=== PATIENT | male | born 1965 | race Caucasian/White ===

== ENCOUNTER 2020-09-18 17:49 | Outpatient (RCR) | payer BC, SELFPAY ==
[2020-09-10 09:59] VITALS: BMI 22.0
--- NOTE | 2020-09-19 12:20 | HP.PTEVAL_ITS ---
Patient's Visit Information LULU MADERA is a 55 year old M referred to Physical Therapy by Dr. Joanie Fermin DO with a diagnosis of R RTC tear, capsulitis. Date of Evaluation: 09/18/20 Physical Therapist: Nirav Kerns DPT - Visit Plan Frequency: 2x /Week Duration: 4-6 Weeks Plan: Start with AAROM and GH glides with PROM allowing for improved ROM. Add in strengthening of scapular musculature as his motion improves. - Subjective Pt is here today for his initial evaluation with diagnosis of R RTC tear, capsulitis. Pt. reprots having a R shoulder injury for a few years now, but has become progressively worse. His symptoms worsened to the point where he was having trouble lifting his coffee mug. He reports his jenkins is throughout his R shoulder, worset at posterior aspect of his shoulder. Increased pain: lifting, raising his arm over his head, lifting, reaching behind his back. Decreased pain: rest. 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 By the end of the day his pain is worsening. Increased pain with sleeping, especially if his arm is in more ER positioning. He did recently recieve an injetion at subacromial joint which has helped a lot. He denies N/T in either UEs. Pt. is hopeful to rduce his symptoms in order to get back to throwing with in grandson this summer. - Pain R shoulder Pain Intensity (Out of 10): 1 Pain Intensity Range: 0, 6 - Objective POSTURE: Pt. tends to keep his shuolder in anterior positioning, FH posture. PALPATION: Pt. has tenderness at subacromial space and bicipital groove. NEURO: Pt. has normal sensation throughout BUEs, normal DTR of biceps and triceps. ROM: R shoulder: PROM- flexion 160deg, abd 155ded, ER at side 60deg. AROM: flexion 160deg, abd 150deg, functional ER C2 mild increase NE, functional IR L3 NE, full extension. MMT: LUE- 5/5 throughout. RUE- wrist 5/5; elbow- 5/5; shoulder- flexion 4/5 mild increase NW, abd 4+/5 NE, Er 4+/5 NE, IR 4+/5 NE, ext 5/5 NE. - Special Tests R Shoulder Belly Press - SupScap: Negative R Shoulder Neer - Impingement: Positive R Shoulder [place] Yoel - Impingement: Positive R Shoulder Yeargasons - SLAP: Positive R Shoulder Speeds Test - Labrum/Biceps: Positive - Goals Goal 1:: LTG: Pt. to be I with HEP. Goal Time Frame: 4-6 Weeks Goal 2:: STG: Pt. to sleep throughout the night without increase in symptoms of R shoulder. Goal Time Frame: 2-4 Weeks Goal 3:: LTG: Pt. to have full R shoulder AROM without increase in symptoms. Goal Time Frame: 4-6 Weeks Goal 4:: LTG: Pt. to complete all work activities and ADLs without increase in symptoms. Goal Time Frame: 4-6 Weeks Goal 5:: LTG: Pt. to have increased RUE strength by 1/2 grade of all effected musculature. Goal Time Frame: 4-6 Weeks - Rehabilitation Potential Physical Therapy Diagnosis: Pt. presents with signs and symptoms consistent with R RTC/capsulitis. Pt. has improved R shoulder ROM and decreased pain since having his injection. He does lack end range of motion over head and with functional ER. He would benefit from PT to work on his ROM at this point in time. He pain is much better, but he is still lmited to ~75% of his overhead motion. Rehabilitation Potential: Excellent - Anticipated Interventions Patient/Client Instruction: Educate patient on: Condition, Plan of Care, Risk Factors, Benefits of Fitness Program For the Purpose of:: To improve decision making, To facilitate caregiver kn owledge, To improve self management, To prevent re-injury, To improve ability to perform tasks related to life management, To improve tolerance to ADL's Therapeutic Exercise to Include: Strength training, Power training, Body mechanics, Postural training, Flexibilty training, Passive ROM, Active ROM, Ash Exercises, Scapular Strength/Stabilization For the Purpose of:: To decrease pain, To decrease swelling/inflammation, To increase ROM, To improve nutrient delivery to tissue, To improve muscle performance and motor function, To decrease level of supervision to perform tasks, To improve health of tissue, To decrease soft tissue restriction, To increase flexibility/ROM Manual Therapy Techniques to Include: Mobilization, Passive ROM, Soft tissue mobilization For the Purpose of:: To decrease pain, To decrease swelling/inflammation, To increase ROM, To improve nutrient delivery to tissue, To increase oxygenation perfusion, To improve muscle performance and motor function Thank you for the opportunity to evaluate your patient. For Medicare and Medicare HMO plans, please review the plan of care and approve it. It will need to be FAXED BACK to us at [phone] for Medicare purposes. For Medicare only, by signing this I certify the plan of care. Please let me know if there are questions or concerns regarding this plan of care. Physician Signature: Date:
== END 2020-09-18 19:00 | disposition home or self-care (01) ==
LOC: PT 17:49
PROVIDERS: Visit Provider Orthopaedic Surgery
DX: M75.101 Unspecified rotator cuff tear or rupture of right shoulder, not specified as traumatic (principal); M77.9 Enthesopathy, unspecified
CPT/HCPCS: 97110; 97161

== ENCOUNTER → 2022-12-16 | Outpatient (CLI) | payer BC, SELFPAY ==
--- NOTE | 2022-12-16 18:04 | MRI_ITS ---
EXAM: MR RIGHT LOWER EXTREMITY WITHOUT INTRAVENOUS CONTRAST, KNEE CLINICAL INDICATION: PATELLAR TENDINITIS, RT KNEE PAIN, swelling TECHNIQUE: Multiplanar and multisequence MR images of the right knee without intravenous contrast. This report was created using [id number] report [employer] technology. COMPARISON: None. FINDINGS: BONES/JOINTS: Cruciate ligaments are intact. 1.2 cm subcortical cyst at the central or midline proximal tibia with surrounding bone marrow edema. EXTENSOR MECHANISM: Extensor mechanism is intact. MEDIAL MENISCUS: Unremarkable. LATERAL MENISCUS: Longitudinal horizontal tear of the anterior horn of the lateral meniscus extending to the body segment. MEDIAL CAPSULE/SUPPORTING STRUCTURES: Unremarkable. Intact. LATERAL CAPSULE/SUPPORTING STRUCTURES: Unremarkable. Lateral collateral ligamentous complex, inclusive of the popliteal tendon, are intact. ANTERIOR CRUCIATE LIGAMENT: Unremarkable. Intact. POSTERIOR CRUCIATE LIGAMENT: Unremarkable. Intact. MUSCLES: Unremarkable. CARTILAGE: Unremarkable. Intact. FLUID: Unremarkable. No significant joint effusion. No Barfield''s cyst. OTHER SOFT TISSUES: Suspected lobulated soft tissue ganglion cyst near the posterior aspect of the the fibular head measuring 2.6 x 1.4 x 1.6 cm. MRI/Lower Ext Joint Only (Routine) IMPRESSION: Longitudinal horizontal tear of the anterior horn of the lateral meniscus extending to the body segment. Small cyst at the level of the tibial spine with surrounding bone marrow edema. Suspected lobulated soft tissue ganglion cyst near the posterior aspect of the the fibular head measuring 2.6 x 1.4 x 1.6 cm. Electronically Signed: Josiah Givens MD at 22:04 EDT ,
== END | disposition home or self-care (01) ==
PROVIDERS: Referring Provider Orthopaedic Surgery; Visit Provider Orthopaedic Surgery
DX: M25.561 Pain in right knee (principal); M76.51 Patellar tendinitis, right knee
CPT/HCPCS: 73721

== ENCOUNTER 2025-04-24 10:10 | Emergency (ER) | payer BC, SELFPAY ==
[2025-04-24 10:11] VITALS: BP 144/73; PULSE 82; RESP 20; TEMP 37.2; O2SAT 99
[2025-04-24 10:28] VITALS: BMI 23.1
--- NOTE | 2025-04-24 10:55 | EDS_ITS ---
HPI History of Present Illness Chief Complaint: Lower Extremity Injury PFSH PFS Home Medications ?Medication ?Instructions ?Recorded ?Last Taken ?Type naproxen sodium 220 mg capsule 440 mg PO DAILY PRN tia n 04/24/25 04/23/25 History (Aleve) oxycodone-acetaminophen 5 mg-325 1 tab PO DAILY PAIN 0 04/24/25 04/23/25 History mg tablet (Endocet) prednisone 20 mg tablet 20 mg PO DAILY 5 days #5 tab s 04/24/25 Unknown Rx Allergy/AdvReac Type Severity Reaction Status Date / Time No Known Allergies Allergy Unverified 09/10/20 10:04 Family History (Updated 09/10/20 @ 10:05 by Yana Rosario) Sister Heart disease Surgical History H/O lumbosacral spine surgery Social History (Updated 09/12/20 @ 13:[address] 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 Smoking Status: Unknown if ever smoked Tobacco: How many years used: 30 alcohol intake: never what type of physical activity do you participate in: none do you feel safe at home: Yes EXAM Physical Exam Const Vital Signs: 04/24/25 10:11 Temperature 98.9 F Temperature Source Temporal Pulse Rate 82 Respiratory Rate 20 H Blood Pressure 144/73 H Blood Pressure Mean 96 Pulse Ox 99 Oxygen Delivery Method Room Air MDM MDM MDM Narrative Medical decision making narrative: HISTORY OF PRESENT ILLNESS: Chief complaint: Left hip pain 60-year-old male with no significant past medical history presents with left hip pain. Patient further states 2 days ago he developed left hip pain. No time event. No falls. No fevers. No history of diabetes. Notes identical twin brother with similar symptoms recently. He thinks he may have greater trochanteric bursitis. Denies urinary complaints or abdominal pain. Denies rashes. Patient denies active cancer, being bedridden for greater than 3 days, denies unilateral leg swelling, denies any varicose veins, denies any calf tenderness, denies tenderness along deep venous system. Denies major surgery within 12 weeks, recent paralysis, previous DVT. REVIEW OF SYSTEMS: Pertinent positives: Hip pain Pertinent negatives: As per HPI PHYSICAL EXAM: Nursing triage notes reviewed, Vital signs reviewed Constitutional: please see mdm Lungs: Clear to auscultation, No wheezing or rales. No increased work of breathing, no conversational dyspnea, no accessory muscle use, no nasal flaring. No respiratory distress noted Heart: Regular rate and rhythm, No murmurs, No rubs and No gallops, 2+ distal pulses (radial, femoral, posterior tibial) in all extremities Abdomen: Soft, there is no tenderness, rigidity, rebound or guarding, no obvious peritoneal signs, no palpable pulsatile abdominal masses, no auscultated abdominal bruit Extremities: TTP over left hip, TTP over left greater trochanter.. Intact hip range of motion with no tenderness palpation with hip flexion and internal rotation. No leg length discrepancy. Intact quads of tendon complex. Left lower extremity warm well-perfused and neurovascularly intact. Neuro: Intact sensation L1-S1 dermatomal distributions. Intact 5/5 strength in hip flexion (T12-L3). Knee extension (L2-L4). Ankle dorsiflexion (L4-L5). Ankle plantar flexion (S1). Great toe extension (L5). 2+ patellar and Achilles DTRs. Skin: No rash or lesions noted MEDICAL DECISION MAKING: Chief Complaint: please see HPI External records reviewed: Reviewed prior imaging studies. Factors affecting care: none Social determinants of health: none History obtained from others: none Consults: none [facility] Narrative: The patient was initially hemodynamically stable, afebrile and nontoxic- appearing. Exam with TTP over left greater trochanter. I considered the following differential diagnosis: Greater trochanteric bursitis, septic arthritis, fracture dislocation, arterial lesion, DVT I obtained an x-ray to further determine if the patient was suffering from a life-threatening etiology. Initially gave oral [place], ibuprofen and lidocaine patches for initial pain relief ALL IMAGES (IF OBTAINED) HAVE BEEN PERSONALLY REVIEWED AND INTERPRETED BY MYSELF. X-ray of the left hip was interpreted by myself showed no acute bony abnormality by my read. Patient's history and physical exam may be secondary to an os of inflammatory event or greater trochanteric bursitis. Will prescribe anti-inflammatories in the form of ibuprofen and steroids. There is no historical or clinical evidence suggest septic arthritis, arterial occlusion, DVT. The patient and/or family, caregivers express understanding. The patient and/or family, caregivers agrees with the plan. Shared decision making: I will have a discussion with the patient and or visitors regarding risk/benefits of further testing or admission. They will be made aware of of the risk/benefits inherent in this decision they will be given the opportunity to voice understanding. Total critical care time today provided was at least 0 minutes. This excludes separately billable procedures. Critical care time (if documented) is secondary to the patient having high probability of clinically significant/life threatening deterioration in the patient's condition which required my urgent intervention. Impression: 1. Acute left hip pain 2. Greater trochanteric bursitis Dispo: Discharge home This note was generated with [employer] dictation software. It may contain incorrect words, spelling, and punctuation that were not noted in review of the chart prior to signing. Radiography Diagnostic Testing: Clinical Impression(s) from Imaging Studies Hip/Pelvis X-Ray 04/24/25 11:07 IMPRESSION: No acute abnormality is seen. Reading Location: [id number] Discharge Plan Triage Chief Complaint: Lower Extremity Injury ED Provider: Edward Corona Dx/Rx/DC Orders Instructions: ED Bursitis Prescriptions: New prednisone 20 mg tablet 20 mg PO DAILY 5 Days Qty: 5 0RF No Action naproxen sodium [Aleve] 220 mg capsule 440 mg PO DAILY PRN (Reason: pain) oxycodone-acetaminophen [Endocet] 5-325 mg tablet 1 tab PO DAILY Rx Instructions: PT TOOK ONE PERCOCET GIVEN TO HIM FROM FRIEND/FAMILY Primary Care Provider: Care Physician,No Primary Referrals: Sean Briseno MD [[facility] Staff - Active Staff] - Activity Restrictions/Additional Instructions: Thank you for trusting us with your care today! Your x-ray did not show signs of bony abnormality or hip. I suspect you are suffering from greater trochanteric bursitis. Is inflammation of shock absorbers in your hip. This will resolve with time and anti- inflammatories. Please take Tylenol (2 pills, 650 mg), ibuprofen (2 pills, 400 mg) every 6 hours as needed for pain and fever control. Please take prednisone as prescribed. Please return to the emergency department if your symptoms change or worsen. Please follow with your primary care physician for further outpatient evaluation and management. Print Language: Bahraini Disposition Disposition: Home, Self Care
--- NOTE | 2025-04-24 11:07 | RAD_ITS ---
PROCEDURE: HIP, UNI W/ PELVIS 2-3 VIEWS 04/24/2025 REASON FOR EXAM: HIP PAIN TECHNIQUE: HIP, UNI W/ PELVIS 2-3 VIEWS Laterality: Left hip COMPARISON: None FINDINGS: Bones: No fracture is seen. Joints: Normal alignment. Joint spaces are preserved. No arthropathic features. Soft tissues: Soft tissues are unremarkable. Other: Moderate amount of fecal material is seen in the colon. RAD/HIP, UNI W/ Pelvis 2-3 Views IMPRESSION: No acute abnormality is seen. Reading Location: [id number]
[2025-04-24] MEDS: Lidocaine 5% Patch 1 PATCH TOPICAL (11:22)
[2025-04-24] MEDS: HYDROcodone Bitartrate/Apap 5/325 Tablet PO (11:22)
[2025-04-24 13:09] VITALS: BP 108/70; PULSE 62; RESP 16; TEMP 37.1; O2SAT 98
== END 2025-04-24 13:35 | disposition home or self-care (01) ==
PROVIDERS: Emergency Provider Emergency Medicine; Visit Provider Emergency Medicine
DX: M25.552 Pain in left hip (principal)
CPT/HCPCS: 73502; 99283